=== PATIENT | female | born 1985 | race Caucasian/White ===

== ENCOUNTER 2017-10-19 19:04 | Emergency (ER) | payer BC, SELFPAY ==
[2017-10-19 19:44] VITALS: BP 138/91; PULSE 117; RESP 20; TEMP 38.2; O2SAT 93
[2017-10-19] MEDS: SODIUM CHLORIDE 0.9% 1,000 ML 1000 ML IV (21:00)
--- NOTE | 2017-10-19 21:02 | ED_ITS ---
HPI - Skin/Abscess/Foreign Bdy General Chief complaint: Skin/Abscess/Foreign Body Stated complaint: THINKS INFECTION OF RIGHT LEG,FEVER Time Seen by Provider: 10/19/17 21:00 Source: patient Mode of arrival: ambulatory Limitations: no limitations History of Present Illness HPI narrative: Patient is here for concerns of a possible infection in her right lower extremity. Patient states that she noticed it Wednesday evening and has been worsening since then. Does have pain over the area. No fevers. No prior history of abscesses requiring incision and drainage. She denies any known trauma. Has never had anything like this before. Has not tried anything for prior to arrival. Related Data Previous Rx's Medication Instructions Recorded amoxicillin-pot clavulanate 875 mg PO BID #14 tab 09/19/16 [Augmentin] doxycycline hyclate 100 mg PO BID 7 Days #14 tab 10/19/17 Allergies Allergy/AdvReac Type Severity Reaction Status Date / Time No Known Drug Allergies Allergy Verified 10/19/17 21:36 Review of Systems Constitutional Denies fatigue and Denies fever(s) ENT Ears, Nose, Mouth, and Throat: Denies vertigo Cardiovascular Denies chest pain, Denies syncope and Denies dyspnea Respiratory Denies dyspnea Gastrointestinal Gastrointestinal: Denies nausea and Denies vomiting Musculoskeletal Denies abnormal gait, Denies myalgias and Denies arthralgias Integumentary/Breasts Reports skin pain Comments: Red area on the front of her right cruz Neurologic Denies abnormal gait, Denies confusion, Denies vertigo and Denies syncope Psychiatric Denies confusion Endocrine Denies fatigue Hematologic/Lymphatic Denies easy bleeding and Denies easy bruising Allergic/Immunologic Denies urticaria [facility] Social History Smoking Status: Current every day smoker Exam Initial Vital Signs Initial Vital Signs: Vital Signs Temperature 100.8 F H 10/19/17 19:44 Pulse Rate 117 H 10/19/17 19:44 Respiratory Rate 20 10/19/17 19:44 Blood Pressure 138/91 H 10/19/17 19:44 Pulse Oximetry 93 10/19/17 19:44 Const General: cooperative, healthy appearing, comfortable, well developed, well groomed and No acute distress Nutritional Appearance: overweight Orientation: alert, awake and oriented x3 HENMT Head: normal to inspection and normocephalic Resp Effort & Inspection: normal respiratory effort Skin Other: patient with a 10 cm round area of redness on her right anterior cruz with multiple other areas of redness surrounding this area. No breaks in the skin felt. No drainage. No vesicles. No pustules. No fluctuance. Neuro Other: Sensation intact to light touch right lower extremity Extrem Other: right hip right knee right ankle right foot joints unremarkable. Redness over the right anterior cruz as described above Psych Appearance: grossly normal and well kempt Course Orders Ordered: ED Orders 10/19/17 21:00 B Type Natriuretic Peptide Stat Complete Blood Count AUTO DIFF Stat Lactate (Lactic Acid) Stat Test Serum,Qual Stat Procalcitonin Stat 10/19/17 21:27 Blood Culture Stat Discontinued Medications Doxycycline Hyclate (Vibramycin) 100 mg PO NOW ONE Stop: 10/19/17 21:35 Last Admin: 10/19/17 21:46 Dose: 100 mg Sodium Chloride (Normal Saline 0.9%) 1,000 mls @ 1,000 mls/hr IV BOLUS ONE Stop: 10/19/17 21:59 Last Infusion: 10/19/17 23:02 Dose: 0 mls/hr Admin: 10/19/17 21:00 Dose: 1,000 mls/hr Vital Signs - 8 hr 10/19/17 19:44 10/19/17 22:03 Temperature 100.8 F H Pulse Rate 117 H 98 H Respiratory Rate 20 21 Blood Pressure 138/91 H Blood Pressure [Right Arm] 122/60 H Pulse Oximetry 93 98 MDM - Skin/Abscess/Foreign Bdy Lab Data Attestation: I reviewed the patient's lab results. Result diagrams: 10/19/17 21:00 Lab Results 10/19/17 10/19/17 10/19/17 Range/Units 21:00 21:00 21:00 WBC 7.9 (4.5-11.0) X10^3/uL RBC 4.42 (4.0-5.2) X10^6/uL Hgb 12.9 (12.0-16.0) g/dL Hct 38.5 (36-46) % MCV 87.0 (80-100) fL MCH 29.2 (26-34) PG MCHC 33.6 (30-36) % RDW 13.8 (11.6-14.8) % Plt Count 205 (150-400) X10^3/uL Neut % (Auto) 72.4 (50-75) % Lymph % (Auto) 16.3 L (25-40) % [place] % (Auto) 9.9 (3-14) % Eos % (Auto) 1.0 L (2-4) % Baso % (Auto) 0.4 (0-2) % Neut # (Auto) 5700 (2128-2043) /uL Lactate 0.8 (0.7-2.1) mmol/L B-Natriuretic Peptide < 100.0 (<100) Procalcitonin 0.13 (<0.5) ng/mL Serum , Qual Negative (Negative) MDM Narrative Medical decision making narrative: patient looks well. Was given fluids here in the emergency department. The redness on her right anterior cruz was outlined with a skin marker. This is consistent with cellulitis. Physical exam is not consistent with an abscess. She was given a dose of antibiotics here in the emergency department by mouth which she tolerated without any problems. Does not have an elevated white blood cell count and does not have an elevated lactate. Will send home with a prescription for oral antibiotics. She was given return precautions with regard to the cellulitis and worsening of this and the possible need for IV antibiotics. She expressed understanding and agreement with plan. Discharge Plan Departure Patient Disposition: Home, Self-Care Clinical Impression: Cellulitis Discharge Date/Time: 10/19/17 23:03 Interventions: ED Discharge Assessment Last Done: 10/19/17 23:03 Instructions: DI for Cellulitis -- Adult Activity Restrictions/Additional Instructions: take all of the antibiotics as directed. You can shower like normal. Call your primary care doctor for a follow-up. Return to the emergency department for any new symptoms, worsening symptoms, redness that extends past the line that was drawn on Your leg today, or any other concerning symptoms. Prescriptions: New doxycycline hyclate 100 mg tablet 100 mg PO BID 7 Days Qty: 14 RF: 0 No Action amoxicillin-pot clavulanate [Augmentin] 875 MG/125 MG tablet 875 mg PO BID Qty: 14 RF: 0
--- NOTE | 2017-10-19 21:15 | PC.NURSE ---
Pt said she was floating a river in [place] over the weekend. Since then, she noticed a reddened area on the right distal leg. She has had fevers and chills.
[2017-10-19 21:19] LABS: Add Manual Diff / Slide Review NO; Basophils Percent Auto 0.4 % (0-2); Hematocrit 38.5 % (36-46); Hemoglobin 12.9 g/dL (12.0-16.0); Lymphocytes Percent Auto 16.3 % (25-40); Mean Corpuscular HGB Conc 33.6 % (30-36); Mean Corpuscular Hemoglobin 29.2 PG (26-34); Monocytes Percent Auto 9.9 % (3-14); Neutrophils Absolute Auto 5700 /uL (3000-5900); Neutrophils Percent Auto 72.4 % (50-75); Platelet Count 205 X10^3/uL (150-400); Red Blood Cell Count 4.42 X10^6/uL (4.0-5.2); Red Cell Distribution Width 13.8 % (11.6-14.8); White Blood Cell Count 7.9 X10^3/uL (4.5-11.0)
[2017-10-19 21:26] LABS: Lactate (Lactic Acid) 0.8 mmol/L (0.7-2.1)
[2017-10-19 21:39] LABS: Pregnancy Test Serum,Qual Negative (Negative)
[2017-10-19 21:46] LABS: Procalcitonin 0.13 ng/mL (<0.5)
[2017-10-19] MEDS: DOXYCYCLINE HYCLATE 100 MG TABLET PO (21:46)
[2017-10-19 22:01] LABS: B Type Natriuretic Peptide < 100.0 (<100)
[2017-10-19 22:03] VITALS: BP 122/60; PULSE 98; RESP 21; O2SAT 98
== END 2017-10-19 23:03 | disposition home or self-care (01) ==
PROVIDERS: Emergency Provider Emergency Medicine
DX: L03.115 Cellulitis of right lower limb (principal)
CPT/HCPCS: 36415; 36591; 83605; 83880; 84145; 84703; 85025; 87040; 96360; 96361; 99283

== ENCOUNTER 2017-10-21 05:49 | Emergency (ER) | payer BC, SELFPAY ==
[2017-10-21 06:01] VITALS: BP 146/102; PULSE 89; RESP 16; TEMP 36.7; O2SAT 97; BMI 47.5
--- NOTE | 2017-10-21 06:13 | ED.SKABFB ---
HPI - Skin/Abscess/Foreign Bdy <Anamika Clement DO - Last Filed: 10/21/17 21:26> General Chief complaint: Skin/Abscess/Foreign Body Stated complaint: right leg cellulitis seen here two days ago Time Seen by Provider: 10/21/17 06:04 Source: patient Mode of arrival: ambulatory Limitations: no limitations History of Present Illness HPI narrative: Patient is a 32-year-old female who presents with right leg cellulitis. She was seen and evaluated 2 days ago where she had fever and tachycardia. Blood cultures are negative WBC count at that time was 7.9. Patient feels like the erythema is spreading. She has been on doxycycline and taken 4 doses. It is slightly beyond the previous karl line. She took Tylenol prior to her arrival but was not febrile. MD complaint: rash Related Data Previous Rx's Medication Instructions Recorded amoxicillin-pot clavulanate 875 mg PO BID #14 tab 09/19/16 [Augmentin] doxycycline hyclate 100 mg PO BID 7 Days #14 tab 10/19/17 Allergies Allergy/AdvReac Type Severity Reaction Status Date / Time No Known Drug Allergies Allergy Verified 10/21/17 06:01 Review of Systems <Anamika Clement DO - Last Filed: 10/21/17 21:26> Review of Systems GENERAL: Denies chills, fatigue, malaise, fever, sweats, travel HEENT: Denies sinus pain, ear pain, sore throat, difficulty swallowing, neck pain RESPIRATORY: Denies dyspnea, cough, wheezing, hemoptysis, sputum. CARDIOVASCULAR: Denies chest pain, palpitations, orthopnea, edema GASTROINTESTINAL: Denies nausea, vomiting, abdominal pain, diarrhea, constipation, melena. : Denies dysuria, frequency, incontinence, hematuria, urinary retention, flank pain. MUSCULOSKELETAL: Denies weakness, joint pain, or bony pain SKIN: See HPI NEUROLOGIC: Denies weakness, dizziness, headache, numbness, change in speech, confusion PSYCHIATRIC: No concerning psychosocial issues. 12 point review of systems is negative except for those stated above and HPI Exam <Anamika Clement DO - Last Filed: 10/21/17 21:26> Initial Vital Signs Initial Vital Signs: Vital Signs Temperature 98.0 F 10/21/17 06:01 Pulse Rate 89 10/21/17 06:01 Respiratory Rate 16 10/21/17 06:01 Blood Pressure 146/102 H 10/21/17 06:01 Pulse Oximetry 97 10/21/17 06:01 GENERAL: Well-appearing, well-nourished and in no acute distress. CARDIOVASCULAR: peripheral pulses in tact, cap refill <2 sec RESPIRATORY: No respiratory distress, speaks in full sentences without difficulty EXTREMITIES: Normal range of motion, no clubbing or edema. Neurovascularly intact. No calf tenderness NEUROLOGICAL: Cranial nerves II through XII grossly intact. Normal gait and speech. SKIN: Patchy erythematous lesions noted on right anterior leg. Very minimal extension beyond the marked line. No calf tenderness. <DO Armani Fuentes Last Filed: 10/21/17 08:36> Initial Vital Signs Initial Vital Signs: Vital Signs Temperature 98.0 F 10/21/17 06:01 Pulse Rate 89 10/21/17 06:01 Respiratory Rate 16 10/21/17 06:01 Blood Pressure 146/102 H 10/21/17 06:01 Pulse Oximetry 97 10/21/17 06:01 Course <DO Armani Ramos Last Filed: 10/21/17 21:26> Orders Ordered: ED Orders 10/21/17 06:42 Basic Metabolic Panel Stat Complete Blood Count AUTO DIFF Stat D Dimer Stat 10/21/17 07:16 US periph venous low extrem rt Stat Vital Signs - 8 hr 10/21/17 06:01 10/21/17 07:47 Temperature 98.0 F 98.0 F Pulse Rate 89 64 Respiratory Rate 16 18 Blood Pressure 146/102 H Blood Pressure [Left Arm] 125/71 H Pulse Oximetry 97 98 <DO Armani Fuentes Last Filed: 10/21/17 08:36> Orders Ordered: ED Orders 10/21/17 06:42 Basic Metabolic Panel Stat Complete Blood Count AUTO DIFF Stat D Dimer Stat 10/21/17 07:16 US periph venous low extrem rt Stat Vital Signs - 8 hr 10/21/17 06:01 10/21/17 07:47 Temperature 98.0 F 98.0 F Pulse Rate 89 64 Respiratory Rate 16 18 Blood Pressure 146/102 H Blood Pressure [Left Arm] 125/71 H Pulse Oximetry 97 98 MDM - Skin/Abscess/Foreign Bdy <DO Armani Ramos Last Filed: 10/21/17 21:26> Lab Data Result diagrams: 10/21/17 06:42 10/21/17 06:42 Lab Results 10/21/17 10/21/17 10/21/17 Range/Units 06:42 06:42 06:42 WBC 7.0 (4.5-11.0) X10^3/uL RBC 4.35 (4.0-5.2) X10^6/uL Hgb 12.7 (12.0-16.0) g/dL Hct 38.1 (36-46) % MCV 87.6 (80-100) fL MCH 29.2 (26-34) PG MCHC 33.4 (30-36) % RDW 14.0 (11.6-14.8) % Plt Count 205 (150-400) X10^3/uL Neut % (Auto) 63.2 (50-75) % Lymph % (Auto) 21.8 L (25-40) % [place] % (Auto) 11.0 (3-14) % Eos % (Auto) 3.3 (2-4) % Baso % (Auto) 0.7 (0-2) % Neut # (Auto) 4400 (5614-1480) /uL D-Dimer 282 H (<230) ng/mL Sodium 140 (137-145) mmol/L Potassium 4.5 (3.4-5.1) mmol/L Chloride 105 (98-107) mmol/L Carbon Dioxide 29 (22-32) mmol/L BUN 11 (7-17) mg/dL Creatinine 0.60 (0.52-1.04) mg/dL Estimated GFR > 60.0 (>60) mL/min BUN/Creatinine Ratio 18.3 (6-22) Glucose 108 H (70-100) mg/dL Calcium 9.1 (8.4-10.2) mg/dL <Miguel El, DO - Last Filed: 10/21/17 08:36> Lab Data Attestation: I reviewed the patient's lab results. Lab Results 10/21/17 10/21/17 10/21/17 Range/Units 06:42 06:42 06:42 WBC 7.0 (4.5-11.0) X10^3/uL RBC 4.35 (4.0-5.2) X10^6/uL Hgb 12.7 (12.0-16.0) g/dL Hct 38.1 (36-46) % MCV 87.6 (80-100) fL MCH 29.2 (26-34) PG MCHC 33.4 (30-36) % RDW 14.0 (11.6-14.8) % Plt Count 205 (150-400) X10^3/uL Neut % (Auto) 63.2 (50-75) % Lymph % (Auto) 21.8 L (25-40) % [place] % (Auto) 11.0 (3-14) % Eos % (Auto) 3.3 (2-4) % Baso % (Auto) 0.7 (0-2) % Neut # (Auto) 4400 (1771-8102) /uL D-Dimer 282 H (<230) ng/mL Sodium 140 (137-145) mmol/L Potassium 4.5 (3.4-5.1) mmol/L Chloride 105 (98-107) mmol/L Carbon Dioxide 29 (22-32) mmol/L BUN 11 (7-17) mg/dL Creatinine 0.60 (0.52-1.04) mg/dL Estimated GFR > 60.0 (>60) mL/min BUN/Creatinine Ratio 18.3 (6-22) Glucose 108 H (70-100) mg/dL Calcium 9.1 (8.4-10.2) mg/dL Imaging Data DVT ultrasound: Radiologist's impression: PROCEDURE: US PERIPH VENOUS LOW EXTREM RT INDICATIONS: EDEMA TECHNIQUE: Real-time imaging, as well as color and pulse Doppler interrogation, were performed of the lower extremity deep veins from the inguinal ligament to the popliteal fossa. COMPARISON: None. FINDINGS: The deep veins are normally compressible, and free of intraluminal thrombus. Color and pulse Doppler demonstrate normal phasic intraluminal flow. There is normal augmentation response to distal compression maneuver. IMPRESSION: Negative for DVT Dictated by: Jf Morgan M.D. on 10/21/2017 at 8:07 Approved by: Jf Morgan M.D. on 10/21/2017 at 8:07 [facility] Narrative Medical decision making narrative: Dr. El... received turned over from night provider. I evaluated this patient a couple days ago here in the emergency department made initial diagnosis of cellulitis. Her right lower extremity actually looks better than the visit from a couple days ago. The redness has extended approximately 2 cm outside the lower aspect of the line that I have made a couple days ago however the redness has significantly improved. Patient did have an elevated D-dimer however right lower extremity DVT scan today was unremarkable. Patient is tolerating the oral antibiotics. Will hold on any admission for now. Discussed this with the patient. She was again given return precautions. She expressed understanding and agreement with plan. Discharge Plan Departure Patient Disposition: Home, Self-Care Clinical Impression: Cellulitis Discharge Date/Time: 10/21/17 08:48 Interventions: ED Discharge Assessment Last Done: 10/21/17 08:47 Instructions: DI for Cellulitis -- Adult Activity Restrictions/Additional Instructions: continue taking all of your medications. Keep your leg elevated like we discussed. Return to the emergency department for any new or worsening symptoms. Prescriptions: No Action amoxicillin-pot clavulanate [Augmentin] 875 MG/125 MG tablet 875 mg PO BID Qty: 14 RF: 0 doxycycline hyclate 100 mg tablet 100 mg PO BID 7 Days Qty: 14 RF: 0 ED Cosign/Signout <Anamika Clement DO - Last Filed: 10/21/17 21:26> Sign Out Provider Sign Out Attestation: signed out to dr el. Awaiting blood work, rash does not seem much worse than previous. Due to recent travel checking D-dimer
--- NOTE | 2017-10-21 06:16 | ED_ITS ---
HPI - Skin/Abscess/Foreign Bdy <Anamika Clement DO - Last Filed: 10/21/17 21:26> General Chief complaint: Skin/Abscess/Foreign Body Stated complaint: right leg cellulitis seen here two days ago Time Seen by Provider: 10/21/17 06:04 Source: patient Mode of arrival: ambulatory Limitations: no limitations History of Present Illness HPI narrative: Patient is a 32-year-old female who presents with right leg cellulitis. She was seen and evaluated 2 days ago where she had fever and tachycardia. Blood cultures are negative WBC count at that time was 7.9. Patient feels like the erythema is spreading. She has been on doxycycline and taken 4 doses. It is slightly beyond the previous karl line. She took Tylenol prior to her arrival but was not febrile. MD complaint: rash Related Data Previous Rx's Medication Instructions Recorded amoxicillin-pot clavulanate 875 mg PO BID #14 tab 09/19/16 [Augmentin] doxycycline hyclate 100 mg PO BID 7 Days #14 tab 10/19/17 Allergies Allergy/AdvReac Type Severity Reaction Status Date / Time No Known Drug Allergies Allergy Verified 10/21/17 06:01 Review of Systems <Anamika Clement DO - Last Filed: 10/21/17 21:26> Review of Systems GENERAL: Denies chills, fatigue, malaise, fever, sweats, travel HEENT: Denies sinus pain, ear pain, sore throat, difficulty swallowing, neck pain RESPIRATORY: Denies dyspnea, cough, wheezing, hemoptysis, sputum. CARDIOVASCULAR: Denies chest pain, palpitations, orthopnea, edema GASTROINTESTINAL: Denies nausea, vomiting, abdominal pain, diarrhea, constipation, melena. : Denies dysuria, frequency, incontinence, hematuria, urinary retention, flank pain. MUSCULOSKELETAL: Denies weakness, joint pain, or bony pain SKIN: See HPI NEUROLOGIC: Denies weakness, dizziness, headache, numbness, change in speech, confusion PSYCHIATRIC: No concerning psychosocial issues. 12 point review of systems is negative except for those stated above and HPI Exam <Anamika Clement DO - Last Filed: 10/21/17 21:26> Initial Vital Signs Initial Vital Signs: Vital Signs Temperature 98.0 F 10/21/17 06:01 Pulse Rate 89 10/21/17 06:01 Respiratory Rate 16 10/21/17 06:01 Blood Pressure 146/102 H 10/21/17 06:01 Pulse Oximetry 97 10/21/17 06:01 GENERAL: Well-appearing, well-nourished and in no acute distress. CARDIOVASCULAR: peripheral pulses in tact, cap refill <2 sec RESPIRATORY: No respiratory distress, speaks in full sentences without difficulty EXTREMITIES: Normal range of motion, no clubbing or edema. Neurovascularly intact. No calf tenderness NEUROLOGICAL: Cranial nerves II through XII grossly intact. Normal gait and speech. SKIN: Patchy erythematous lesions noted on right anterior leg. Very minimal extension beyond the marked line. No calf tenderness. <DO Armani Fuentes Last Filed: 10/21/17 08:36> Initial Vital Signs Initial Vital Signs: Vital Signs Temperature 98.0 F 10/21/17 06:01 Pulse Rate 89 10/21/17 06:01 Respiratory Rate 16 10/21/17 06:01 Blood Pressure 146/102 H 10/21/17 06:01 Pulse Oximetry 97 10/21/17 06:01 Course <DO Armani Ramos Last Filed: 10/21/17 21:26> Orders Ordered: ED Orders 10/21/17 06:42 Basic Metabolic Panel Stat Complete Blood Count AUTO DIFF Stat D Dimer Stat 10/21/17 07:16 US periph venous low extrem rt Stat Vital Signs - 8 hr 10/21/17 06:01 10/21/17 07:47 Temperature 98.0 F 98.0 F Pulse Rate 89 64 Respiratory Rate 16 18 Blood Pressure 146/102 H Blood Pressure [Left Arm] 125/71 H Pulse Oximetry 97 98 <DO Armani Fuentes Last Filed: 10/21/17 08:36> Orders Ordered: ED Orders 10/21/17 06:42 Basic Metabolic Panel Stat Complete Blood Count AUTO DIFF Stat D Dimer Stat 10/21/17 07:16 US periph venous low extrem rt Stat Vital Signs - 8 hr 10/21/17 06:01 10/21/17 07:47 Temperature 98.0 F 98.0 F Pulse Rate 89 64 Respiratory Rate 16 18 Blood Pressure 146/102 H Blood Pressure [Left Arm] 125/71 H Pulse Oximetry 97 98 MDM - Skin/Abscess/Foreign Bdy <DO Armani Ramos Last Filed: 10/21/17 21:26> Lab Data Result diagrams: 10/21/17 06:42 10/21/17 06:42 Lab Results 10/21/17 10/21/17 10/21/17 Range/Units 06:42 06:42 06:42 WBC 7.0 (4.5-11.0) X10^3/uL RBC 4.35 (4.0-5.2) X10^6/uL Hgb 12.7 (12.0-16.0) g/dL Hct 38.1 (36-46) % MCV 87.6 (80-100) fL MCH 29.2 (26-34) PG MCHC 33.4 (30-36) % RDW 14.0 (11.6-14.8) % Plt Count 205 (150-400) X10^3/uL Neut % (Auto) 63.2 (50-75) % Lymph % (Auto) 21.8 L (25-40) % [place] % (Auto) 11.0 (3-14) % Eos % (Auto) 3.3 (2-4) % Baso % (Auto) 0.7 (0-2) % Neut # (Auto) 4400 (0608-8332) /uL D-Dimer 282 H (<230) ng/mL Sodium 140 (137-145) mmol/L Potassium 4.5 (3.4-5.1) mmol/L Chloride 105 (98-107) mmol/L Carbon Dioxide 29 (22-32) mmol/L BUN 11 (7-17) mg/dL Creatinine 0.60 (0.52-1.04) mg/dL Estimated GFR > 60.0 (>60) mL/min BUN/Creatinine Ratio 18.3 (6-22) Glucose 108 H (70-100) mg/dL Calcium 9.1 (8.4-10.2) mg/dL <Miguel El, DO - Last Filed: 10/21/17 08:36> Lab Data Attestation: I reviewed the patient's lab results. Lab Results 10/21/17 10/21/17 10/21/17 Range/Units 06:42 06:42 06:42 WBC 7.0 (4.5-11.0) X10^3/uL RBC 4.35 (4.0-5.2) X10^6/uL Hgb 12.7 (12.0-16.0) g/dL Hct 38.1 (36-46) % MCV 87.6 (80-100) fL MCH 29.2 (26-34) PG MCHC 33.4 (30-36) % RDW 14.0 (11.6-14.8) % Plt Count 205 (150-400) X10^3/uL Neut % (Auto) 63.2 (50-75) % Lymph % (Auto) 21.8 L (25-40) % [place] % (Auto) 11.0 (3-14) % Eos % (Auto) 3.3 (2-4) % Baso % (Auto) 0.7 (0-2) % Neut # (Auto) 4400 (7266-3053) /uL D-Dimer 282 H (<230) ng/mL Sodium 140 (137-145) mmol/L Potassium 4.5 (3.4-5.1) mmol/L Chloride 105 (98-107) mmol/L Carbon Dioxide 29 (22-32) mmol/L BUN 11 (7-17) mg/dL Creatinine 0.60 (0.52-1.04) mg/dL Estimated GFR > 60.0 (>60) mL/min BUN/Creatinine Ratio 18.3 (6-22) Glucose 108 H (70-100) mg/dL Calcium 9.1 (8.4-10.2) mg/dL Imaging Data DVT ultrasound: Radiologist's impression: PROCEDURE: US PERIPH VENOUS LOW EXTREM RT INDICATIONS: EDEMA TECHNIQUE: Real-time imaging, as well as color and pulse Doppler interrogation, were performed of the lower extremity deep veins from the inguinal ligament to the popliteal fossa. COMPARISON: None. FINDINGS: The deep veins are normally compressible, and free of intraluminal thrombus. Color and pulse Doppler demonstrate normal phasic intraluminal flow. There is normal augmentation response to distal compression maneuver. IMPRESSION: Negative for DVT Dictated by: Jf Morgan M.D. on 10/21/2017 at 8:07 Approved by: Jf Morgan M.D. on 10/21/2017 at 8:07 [facility] Narrative Medical decision making narrative: Dr. lE... received turned over from night provider. I evaluated this patient a couple days ago here in the emergency department made initial diagnosis of cellulitis. Her right lower extremity actually looks better than the visit from a couple days ago. The redness has extended approximately 2 cm outside the lower aspect of the line that I have made a couple days ago however the redness has significantly improved. Patient did have an elevated D-dimer however right lower extremity DVT scan today was unremarkable. Patient is tolerating the oral antibiotics. Will hold on any admission for now. Discussed this with the patient. She was again given return precautions. She expressed understanding and agreement with plan. Discharge Plan Departure Patient Disposition: Home, Self-Care Clinical Impression: Cellulitis Discharge Date/Time: 10/21/17 08:48 Interventions: ED Discharge Assessment Last Done: 10/21/17 08:47 Instructions: DI for Cellulitis -- Adult Activity Restrictions/Additional Instructions: continue taking all of your medications. Keep your leg elevated like we discussed. Return to the emergency department for any new or worsening symptoms. Prescriptions: No Action amoxicillin-pot clavulanate [Augmentin] 875 MG/125 MG tablet 875 mg PO BID Qty: 14 RF: 0 doxycycline hyclate 100 mg tablet 100 mg PO BID 7 Days Qty: 14 RF: 0 ED Cosign/Signout <Anamika Clement DO - Last Filed: 10/21/17 21:26> Sign Out Provider Sign Out Attestation: signed out to dr el. Awaiting blood work, rash does not seem much worse than previous. Due to recent travel checking D- dimer
--- NOTE | 2017-10-21 06:18 | PC.NURSE ---
Pt has an area that is outlined from visit 2 days ago. It does not appear to extend beyond those borders. Pt concerned that there may have been a small area now on her right thigh
[2017-10-21 06:49] LABS: Add Manual Diff / Slide Review NO; Basophils Percent Auto 0.7 % (0-2); Eosinophils Percent Auto 3.3 % (2-4); Hematocrit 38.1 % (36-46); Hemoglobin 12.7 g/dL (12.0-16.0); Lymphocytes Percent Auto 21.8 % (25-40); Mean Corpuscular HGB Conc 33.4 % (30-36); Mean Corpuscular Hemoglobin 29.2 PG (26-34); Mean Corpuscular Volume 87.6 fL (80-100); Neutrophils Absolute Auto 4400 /uL (3000-5900); Neutrophils Percent Auto 63.2 % (50-75); Platelet Count 205 X10^3/uL (150-400); Red Blood Cell Count 4.35 X10^6/uL (4.0-5.2)
[2017-10-21 07:05] LABS: BUN Creatinine Ratio 18.3 (6-22); Blood Urea Nitrogen 11 mg/dL (7-17); Calcium 9.1 mg/dL (8.4-10.2); Carbon Dioxide 29 mmol/L (22-32); Chloride 105 mmol/L (98-107); D Dimer 282 ng/mL (<230); Estimated Glomerular Filt Rate > 60.0 mL/min (>60); Glucose 108 mg/dL (70-100); HEMOLYSIS 16 (0-50); Potassium 4.5 mmol/L (3.4-5.1); Sodium 140 mmol/L (137-145)
--- NOTE | 2017-10-21 07:16 | DI.US.S_ITS ---
PROCEDURE: US PERIPH VENOUS LOW EXTREM RT INDICATIONS: EDEMA TECHNIQUE: Real-time imaging, as well as color and pulse Doppler interrogation, were performed of the lower extremity deep veins from the inguinal ligament to the popliteal fossa. COMPARISON: None. FINDINGS: The deep veins are normally compressible, and free of intraluminal thrombus. Color and pulse Doppler demonstrate normal phasic intraluminal flow. There is normal augmentation response to distal compression maneuver. IMPRESSION: Negative for DVT Dictated by: Jf Morgan M.D. on 10/21/2017 at 8:07 Approved by: Jf Morgan M.D. on 10/21/2017 at 8:07
[2017-10-21 07:47] VITALS: BP 125/71; PULSE 64; RESP 18; TEMP 36.7; O2SAT 98
[2017-10-21 08:47] VITALS: BP 137/94; PULSE 81; RESP 16; O2SAT 97
== END 2017-10-21 08:48 | disposition home or self-care (01) ==
PROVIDERS: Emergency Medicine; Emergency Provider Emergency Medicine
DX: L03.115 Cellulitis of right lower limb (principal)
CPT/HCPCS: 36415; 80048; 85025; 85379; 93971; 99283; 99284